=== PATIENT | female | born 1995 | race Caucasian/White ===

== ENCOUNTER 2018-02-16 07:10 | Day surgery (SDC) | payer OTHER ==
--- NOTE | 2018-02-15 15:58 | PDGENHP ---
History and Physical - Chief Complaint Bilateral Hip Pain - History of Present Illness 1. Right~Femoroacetabular impingement (AARON) Cam type, with~resultant labral tear~ 2. ~~Mild Left hip pain HISTORY OF PRESENT ILLNESS: Janeis a 22 y.o.~~~active female~who I have had the pleasure to consult on today. I have enjoyed meeting her. She~lives in [place], [place]. 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 ~She~is ; she~has no~children. ~Janeenjoys [employer], club rugby and softball. Michelle's right~hip pain started several years ago (summer), with no~ recalled trauma or injury, and with some~previous complaints. 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 Janedoes not have~a known history of hip dysplasia. Does report problems with R hip in high school - posteriorly with pain on sitting - went away on its own with PT. Presentation today is of anterior and posterior right~hip pain - can be "grindy " and location can change. ~The hip does~wake her~at night and does~click and catch on her. Sitting does not present a problem~for her. Can feel like it "shifts" on her when changing positions. Janedoes~report suffering from lower back pain episodes. Saw Dr. Zuñiga May of 2017 - diagnosed with gluteus medius strain and bursitis. Did PT and reduced activity - feels latter was more helpful. Janehas~utilized medication for pain management, including NSAID. Jane has used medication for several months. Janecan have some similar type pain on the left - but to a much lesser extent. Janeunderstands that she~has a hip and pelvis problem which should be researched and wishes to get a better understanding of her~hip status, followed by an establishment of a treatment strategy, hoping she~would be able to get back to her~well being active life. History: Past medical history: ~ Patient ~has a past medical history of Concussion and Maxillary fracture (HC code). She also has no past medical history of Anemia; Anxiety; Arthritis; Asthma; Cancer (HC code); Cataract; Cerebral artery occlusion with cerebral infarction (HC code); CHF (congestive heart failure) (HC code); Chronic kidney disease; Clotting disorder (HC code); COPD (chronic obstructive pulmonary disease) (HC code); Depression; Diabetes mellitus (HC code); Emphysema of lung ( HC code); GERD (gastroesophageal reflux disease); Glaucoma; Heart murmur; History of blood transfusion; HIV infection (HC code); Hypertension; Immune deficiency disorder (HC code); Meningitis; Myocardial infarction; Neuromuscular disorder (HC code); Osteoporosis; Seizures (HC code); Sickle cell anemia (HC code); Substance abuse; Thyroid disease; Tuberculosis; or Ulcer (HC code). Relevant familial history: None which is relevant Past surgical history: None Janehas never received general anesthesia. I have reviewed, verified and agree with the past medical, surgical, family and social history. Current Medications:Josehas a current medication list which includes the following prescription(s): cyanocobalamin (vitamin b-12) and microgestin fe .02/25 (28). ALLERGIES:Joseis allergic to sulfa (sulfonamide antibiotics). Objective: Physical Examination: Janeis 5~feet 7~inches tall and weighs 145~Lbs. Janeis AAO x3; she~is well-nourished, in NAD. Skin is warm and dry. ~Breathing is non-labored. ~CV with RRR by pulse. Abdomen is soft, NTND. Currently, she~walks with a normal~gait. Trendelenburg sign is negative~and proprioception is normal, both~sides. She~presents with no~signs of joint laxity. Beightons Score: 0 She~is fit looking. ~~ Lower spine examination is negative~for sciatic or femoral nerve irritation with negative~SLR &~femoral stretch tests. Range of motion of the spine is normal~for flexion, extension, and rotations, with no~associated pain. Strength, Sensation and pulses are normal - bilaterally Ankles and knees exams are normal~and no~mal-alignment is evident. She~has no leg length discrepancy. Thigh circumference is symmetric~with no evidence for muscle atrophy~on both~ sides. Hip ROM (degrees): FL ER At 90~hip FL IR At 90~hip FL AB AD EX IR Neutral hip ER Neutral hip R 105 50 10 45 10 5 45 30 L 100 45 15 45 10 5 45 30 Specific hip and pelvis tests: Impingement Test TAMIKO Roll Add. Longus R +++ +++ Negative ++ L +++ (R>L) +++ (R>L) Negative ++ Glut. Med ITB Posterior Imp R Negative 5/5 strength Negative 5/5 strength Negative L Negative 5/5 strength Negative 5/5 strength Negative Squeeze test measured normal Bony Symphysis pubis is pain free~to touch while concentric activity of the rectus abdominis, does not~produce pain at its insertion. Ilio Psos specific tests are negative HF has pain the right hip. Posterior and lateral~capsule tenderness on the right Greater trochanteric burse is painful~on the right hip. Piriformis tests: FAIR is negative, with no~local signs of neuritis related to sciatic nerve. SIJs examination is normal~with normal~TAMIKO in relation and local tenderness. Hamstrings tests are negative both hips. On a daily basis, the following percentages reflect Michelle's overall total pain : Deep hip/anterior: 75% Hip flexors: 10% GT: 15% Imaging: Radiology studies which I have personally reviewed, analyzed and measured are below: XR: AP of the hip and pelvis: Performed in a good~technique Coccyx to pubic symphysis distance 1.2~cm. 15~degrees caudal [place] Lines are preserved. Minimal~Pathological signs are seen in the Symphysis Pubis. No~Pathological signs are seen at the Ischial tuberosity. ~ Specific measurements show: NSA~ LCE Sourcil~Angle Sharp's angle Lat. Cam Lat. Pincer C.Over~sign Head~Coverage % ATDmm R 130 29 3 42 N N 1:00 81 + L 128 28 5 40 N N 1:30 77 + Pos. wall sign ISS NAD ~~Dysplasia Comments R Negative + 10.0~mm N L Negative + 9.1~mm Negative Sclerosis Sup. Lat. OA Cysts Joint Space-WBZ Joint Space-Medial R Negative Negative Negative 3.0~mm 3.2~mm L Negative Negative Negative 3.0~mm 3.6~mm X Table lateral: Anterior cam lesion is seen~on the right hip. Alpha Angle: ~ Right 71~dergrees No image of left hip MRI shows: 06/11/17 - right increased signal at GT bursa and along insertion of gluteus medius. Labral tear with no cartilage fissuring, no increases subchondral edema or cysts. Impression and plan: Michelle~is a 22 y.o.~active female~suffering from symptomatic Right~hip pain due to Right~Femoroacetabular impingement (AARON) Cam type, with~resultant labral tear~causing significant disability to her~and altering her~sport and life activities. Physical examination, imaging, and her~story correspond with the diagnosis mentioned above. I explained that femoroacetabular impingement (AARON) arises due to a bony or soft tissue conflict between the femur (ball) and acetabulum (socket) caused by an abnormality in the shape of the hip joint. Over time, repetitive impingement can result in damage to the labrum and adjacent surface cartilage within the socket, ultimately giving rise to progressive osteoarthritis of the hip. I explained that although a labral tear can be a source of pain, it is rarely the root of the problem and typically occurs secondary to an underlying abnormality in the shape and mechanics of the hip joint. ~ I reviewed conservative treatment options for AARON including activity modification to avoid positions of impingement, physical therapy, non-steroidal anti-inflammatory medications, and various injections (corticosteroid and PRP) aimed at reducing inflammation in the hip joint or/and preventing dynamic impingement. PRP injections may promote healing and reduce symptoms in certain cases but it will not repair chronically damaged tissue. Although these measures may help to buy time and reduce current level of symptoms, they are not a definitive solution to the problem given the underlying abnormality in the shape of the hip joint. Patients who have failed conservative management and continue to experience symptoms are candidates for hip arthroscopy, a minimally invasive surgery that can definitively address the underlying problem. Hip arthroscopy typically includes treating the labrum with either repair or reconstruction of the torn labrum; as well as addressing the underlying abnormalities by restoring the normal shape to the hip joint. ~If the cartilage is damaged a Microfracture surgical procedure may also be necessary to help stimulate the growth of fibrocartilage. ~If a patient requires a labral reconstruction or a Microfracture, the initial rehabilitation from the surgery may take longer, but the custodial results are typically favorable. Michelle~will review the info presented. In order to obtain more detailed information regarding the alignment, orientation, and shape of the bony hip and pelvis I will order a CT scan to be performed. The results of the CT scan, including femoral torsion and acetabular version measured values and 3D images, will aid me in deciding on the best treatment strategy and surgical pre-planning. We will also get a Harden lateral of her L hip at the time of the CT to evaluate for a cam-type lesion on this side as well. Michelle~is happy with this plan and decide how she wants to move forward. I have also supplied her~with handouts, outlining the expected surgical treatment and rehab involved. I wish~Michelle~all the best, ~~ Chichi Darby MD History Information - Allergies/Home Medication List Allergies/Adverse Reactions: Sulfa (Sulfonamide Antibiotics) Allergy (Verified 01/19/18 14:11) Home Medications: Control 01/19/18 [Last Taken Unknown] I have personally reviewed and updated: medical history - Social History Smoking Status: Never smoked Review of Systems Review of Systems: Physical Exam Physical Exam:
[2018-02-16] MEDS ORDERED: ACETAMINOPHEN 500 MG TAB PO ONE (08:06)
[2018-02-16] MEDS ORDERED: PREGABALIN 150 MG CAP PO ONE (08:06)
[2018-02-16] MEDS ORDERED: ceFAZolin 2 GM/SWFI 2 GM/20 ML SYR IVP ONE (08:06)
[2018-02-16] MEDS ORDERED: LIDOCAINE 1% 2 ML INJ ID PRN (08:08)
[2018-02-16] MEDS ORDERED: LR 1,000 ML IV ONE (08:08)
[2018-02-16] MEDS ORDERED: BUPIVACAINE 0.25% 30 ML SDV ONE (10:23)
[2018-02-16] MEDS ORDERED: EPINEPHrine 30 MG/30 ML MDV (0.1 MG/0.1 ML) ONE (10:23)
[2018-02-16] MEDS ORDERED: MIDAZOLAM 2 MG/2 ML VIAL IVP ONE (12:22)
--- NOTE | 2018-02-16 12:24 | PDANEPAE ---
ANE History of Present Illness Patient presents for bilateral hip arthroscopy ANE Past Medical History - Cardiovascular History Hx Hypertension: No Hx Arrhythmias: No Hx Chest Pain: No Hx Coronary Artery / Peripheral Vascular Disease: No Hx CHF / Valvular Disease: No Hx Palpitations: No - Pulmonary History Hx COPD: No Hx Asthma/Reactive Airway Disease: No Hx Recent Upper Respiratory Infection: No Hx Oxygen in Use at Home: No Hx Sleep Apnea: No Sleep Apnea Screening Result - Last Documented: Negative - Neurologic History Hx Cerebrovascular Accident: No Hx Seizures: No Hx Dementia: No - Endocrine History Hx Diabetes: No - Renal History Hx Renal Disorders: No - Liver History Hx Hepatic Disorders: No - Neurological & Psychiatric Hx Hx Neurological and Psychiatric Disorders: No - Cancer History Hx Cancer: No - Congenital Disorder History Hx Congenital Disorders: No - GI History Hx Gastrointestinal Disorders: No - Other Health History Other Health History: none - Chronic Pain History Chronic Pain: No - Surgical History Prior Surgeries: R ring finger repair ANE Review of Systems Review of Systems: - Exercise capacity Exercise capacity: >=4 METS METS (RN): 6 METS ANE Patient History - Allergies Allergies/Adverse Reactions: Sulfa (Sulfonamide Antibiotics) Allergy (Verified 01/19/18 14:11) - Home Medications Home medications: home medication list seen and reviewed Home Medications: Control 01/19/18 [Last Taken 02/15/18] - NPO status NPO Status: no food or drink >8 hours NPO Since - Liquids (Date): 02/15/18 NPO Since - Liquids (Time): 23:00 NPO Since - Solids (Date): 02/15/18 NPO Since - Solids (Time): 21:00 - Anes Hx Anes Hx: no prior problems - Smoking Hx Smoking Status: Never smoked - Family Anes Hx Family Hx Anesthesia Complications: NONE ANE Labs/Vital Signs - Vital Signs Blood Pressure: 111/69 Heart Rate: 80 Respiratory Rate: 16 O2 Sat (%): 98 Height: 170.18 cm Weight: 66.678 kg ANE Physical Exam - Airway Neck exam: FROM Mouth exam: normal dental/mouth exam - Pulmonary Pulmonary: no respiratory distress - Cardiovascular Cardiovascular: regular rate and rhythym ANE Anesthesia Plan Anesthesia Plan: general endotracheal anesthesia (rba discussed)
[2018-02-16] MEDS ORDERED: fentaNYL 100 MCG/2 ML INJ ONE ×2 (12:25→18:18)
[2018-02-16] MEDS ORDERED: PROPOFOL 200 MG/20 ML VIAL ONE (12:25)
[2018-02-16] MEDS ORDERED: PROPOFOL/EMULSION 500 MG/50 ML BOTTLE IV ONE ×2 (12:25→14:49)
[2018-02-16] MEDS ORDERED: SUCCINYLCHOLINE CHLORIDE 200 MG/10 ML SYR IVP ONE (12:43)
[2018-02-16] MEDS ORDERED: LIDOCAINE 2% 5 ML SDV ONE (12:43)
[2018-02-16] MEDS ORDERED: DEXAMETHASONE 4 MG/ML VIAL ONE (14:52)
[2018-02-16] MEDS ORDERED: ONDANSETRON 4 MG/2 ML VIAL ONE (14:52)
[2018-02-16] MEDS ORDERED: HYDROmorphONE/DILAUDID 2 MG/ML INJ ONE (16:05)
[2018-02-16] MEDS ORDERED: ceFAZolin 1 GM VIAL ONE (16:14)
[2018-02-16] MEDS ORDERED: HYDROCODONE/APAP 5/325 TAB PO PRN (17:48)
[2018-02-16] MEDS ORDERED: NALOXONE HCL 0.4 MG/ML INJ IVP PRN (17:48)
[2018-02-16] MEDS ORDERED: LR 500 ML IV PRN (17:48)
[2018-02-16] MEDS ORDERED: ONDANSETRON 4 MG/2 ML VIAL IVP PRN (17:48)
[2018-02-16] MEDS ORDERED: HYDROmorphONE/DILAUDID 1 MG/ML INJ ONE (18:17)
[2018-02-16] MEDS: fentaNYL 100 MCG/2 ML INJ IVP PRN ×2 (18:20→18:35)
--- NOTE | 2018-02-16 18:20 | POSTANESTH ---
Post Anesthetic Evaluation Cardiovascular Status: Similar to Pre-Op Cond Respiratory Status: Similar to Pre-op Cond. Level of Consciousness/Mental Status: Alert and Oriented Pain Control: Inadeq, Add Tx Required Nausea/Vomiting Control: Adequate, Prn Tx Ordered Complications Possibly Related to Anesthesia: None Noted
[2018-02-16] MEDS: HYDROmorphONE/DILAUDID 2 MG/ML INJ IVP PRN ×3 (18:28→19:01)
[2018-02-16] MEDS: oxyCODONE IR 5 MG TAB PO PRN ×2 (19:09→20:19)
[2018-02-16] MEDS ORDERED: oxyCODONE IR 5 MG TAB ONE ×2 (19:10→20:16)
[2018-02-16 21:09] VITALS: BP 132/75
[2018-02-16 21:46] LABS: CREATINE KINASE 343 IU/L (0-156)
== END 2018-02-16 20:25 | disposition home or self-care (01) ==
LOC: FSGY 07:10
PROVIDERS: ATTEND Orthopaedic Surgery Sports Medicine
PROC: 0SQB4ZZ Repair Left Hip Joint, Percutaneous Endoscopic Approach (ICD-10-PCS; principal; 2018-02-16 09:30)
PROC: 0SQ94ZZ Repair Right Hip Joint, Percutaneous Endoscopic Approach (ICD-10-PCS; principal; 2018-02-16 09:30)
DX: M25.851 Other specified joint disorders, right hip (principal); M25.852 Other specified joint disorders, left hip
CPT/HCPCS: C1713; J0171; J0330; J0690; J1100; J1170; J2250; J2405; J2704; J3010